=== PATIENT | male | born 1960 | race African-American/Black ===

== ENCOUNTER 2024-12-02 22:29 | Inpatient (IN) | payer OTHER ==
[~2024-12-02] VITALS: Ht 177.8 cm; Wt 193.2 kg
[2024-12-03 00:43] LABS: BASOPHILS % 0.5 % (0.0-2.0); EOSINOPHILS % 0.9 % (0.0-5.0); HEMOGLOBIN. 13.7 g/dL (14.0-18.0); LYMPHOCYTES % 7.7 % (20.0-50.0); MEAN CORPUSCULAR HEMOGLOBIN 28.4 pg (28.0-32.0); MEAN CORPUSCULAR HGB CONC 31.1 g/dL (31.0-37.0); MEAN CORPUSCULAR VOLUME 91.1 fL (80.0-94.0); MEAN PLATELET VOLUME 10.2 fl (7.4-10.4); MONOCYTES % 3.7 % (2.0-8.0); NEUTROPHILS % 87.2 % (40.0-76.0); PLATELET 194 x1000/uL (130-400); RED BLOOD CELL COUNT 4.83 mill/uL (4.7-6.1); RED CELL DISTRIBUTION WIDTH 18.1 % (11.6-14.6); WHITE BLOOD COUNT 13.8 x1000/uL (4.5-11.0)
[2024-12-03 02:22] LABS: CHLORIDE 111 mEq/L (98-107); POTASSIUM 4.8 mEq/L (3.5-5.1); SODIUM 142 mEq/L (136-145)
[2024-12-03 02:23] LABS: CALCIUM 8.2 mg/dL (8.7-10.4); CARBON DIOXIDE 23 mEq/L (21-32)
[2024-12-03 02:28] LABS: CREATININE 3.3 mg/dL (0.6-1.3); GLUCOSE 197 mg/dL (70-105); UREA NITROGEN BLOOD 44 mg/dL (9-23)
[2024-12-03 02:29] LABS: TROPONIN I HIGH SENSITIVITY 12 ng/L (3.0-53)
[2024-12-03 02:41] LABS: INR 1.1; PARTIAL THROMBOPLASTIN TIME 31.6 sec (23.4-31.0); PROTHROMBIN TIME 11.9 sec (9.6-11.0)
[2024-12-03 02:53] LABS: ETHANOL BLOOD < 10 mg/dL (<10)
[2024-12-03] MEDS: SODIUM CHLORIDE 0.9% 500 ML IV ONE (03:00)
[2024-12-03] MEDS ORDERED: ONDANSETRON HCL 4MG/2ML INJ IV PRN (04:45)
[2024-12-03] MEDS ORDERED: ACETAMINOPHEN 325MG TABLET PO PRN (04:45)
[2024-12-03] MEDS ORDERED: IPRATROPIUM/ALBUTEROL 0.5-3(2.5)MG/3ML NEB HHN PRN (04:45)
[2024-12-03] MEDS: CEFTRIAXONE 1GM/50ML 50 ML IV SCH (06:40)
[2024-12-03] MEDS: PANTOPRAZOLE SODIUM 40 MG/VIAL IV SCH (09:48)
[2024-12-03] MEDS ORDERED: DEXTROSE 50% WATER 50ML SYRINGE IV PRN (11:30)
[2024-12-03 12:00] VITALS: BP 133/47; PULSE 70; RESP 18; TEMP 36.3918; O2SAT 98
[2024-12-03] MEDS: BLOOD SUGAR DIAGNOSTIC STRIP TEST SCH (12:10)
[2024-12-03] MEDS: INSULIN LISPRO 100 UNITS/ML SUBCUT SCH (12:40)
[2024-12-03] MEDS: AZITHROMYCIN 500 MG TABLET PO SCH (13:41)
[2024-12-03 15:21] VITALS: BP 133/47; PULSE 69; RESP 18; TEMP 36.418
[2024-12-03 16:00] VITALS: BP 130/61; RESP 19; TEMP 33.22488; O2SAT 85; O2SAT 96
[2024-12-03] MEDS ORDERED: SIMV10TA97 PO (16:35)
[2024-12-03] MEDS ORDERED: NIFE-49 MT (16:35)
[2024-12-03] MEDS ORDERED: ASPI-1497 PO (16:35)
[2024-12-03] MEDS ORDERED: FURO80TA3 PO (16:35)
[2024-12-03 20:00] VITALS: BP 169/61; PULSE 58; RESP 16; TEMP 36.28068; O2SAT 96
[2024-12-04] VITALS: BP 146/67; PULSE 77; RESP 16; TEMP 36.22512; O2SAT 92
[2024-12-04 04:00] VITALS: BP 158/71; PULSE 73; RESP 16; TEMP 36.33624; O2SAT 93
[2024-12-04 07:55] LABS: POTASSIUM 5.3 mEq/L (3.5-5.1)
[2024-12-04 07:56] LABS: CALCIUM 8.4 mg/dL (8.7-10.4)
[2024-12-04 07:59] LABS: HEMOGLOBIN 13.3 g/dL (14.0-18.0); MEAN CORPUSCULAR HEMOGLOBIN 28.6 pg (28.0-32.0); MEAN CORPUSCULAR HGB CONC 30.9 g/dL (31.0-37.0); MEAN CORPUSCULAR VOLUME 92.3 fL (80.0-94.0); PLATELET 174 x1000/uL (130-400); RED BLOOD CELL COUNT 4.65 mill/uL (4.7-6.1); RED CELL DISTRIBUTION WIDTH 17.8 % (11.6-14.6); WHITE BLOOD COUNT 8.4 x1000/uL (4.5-11.0)
[2024-12-04 08:00] VITALS: BP 149/73; PULSE 78; RESP 18; TEMP 36.55848; O2SAT 95
[2024-12-04 08:13] LABS: T4 FREE 1.18 ng/dL (0.89-1.76)
[2024-12-04 08:26] LABS: CREATININE 3.1 mg/dL (0.6-1.3)
[2024-12-04] MEDS: AZITHROMYCIN 250 MG TABLET PO SCH (08:45)
[2024-12-04] MEDS ORDERED: SODIUM POLYSTYRENE SULFONATE 15 G/60 ML BOT PO ONE (08:45)
[2024-12-04] MEDS: SODIUM ZIRCONIUM CYCLOSILICATE 10GM/PACKET PO NR (10:11)
[2024-12-04 10:42] LABS: THYROID STIMULATING HORMONE 4.33 uIU/mL (0.55-4.78)
[2024-12-04 12:00] VITALS: BP 146/72; PULSE 73; RESP 18; TEMP 36.50292; O2SAT 94
[2024-12-04] MEDS ORDERED: HYDRALAZINE 20MG/ML VIAL IV PRN (15:45)
[2024-12-04 16:00] VITALS: BP 156/82; PULSE 82; RESP 18; TEMP 36.61404; O2SAT 94
[2024-12-04] MEDS: ENOXAPARIN 40MG/0.4ML SYR SUBCUT SCH (16:55)
[2024-12-04] MEDS ORDERED: MEDICATION NOT ON FORMULARY EA (Simvastatin 10 MG) PO SCH (18:00)
[2024-12-04 20:00] VITALS: BP 154/73; PULSE 77; RESP 18; TEMP 35.94732; O2SAT 93
[2024-12-04] MEDS: ATORVASTATIN CALCIUM 10MG TABLET PO SCH (21:34)
[2024-12-05] VITALS (9 sets, daily range): BP systolic 148–180; BP diastolic 74–94; PULSE 72–102; RESP 16–20; TEMP 36.00288–36.72516; O2SAT 93–97
[2024-12-05] MEDS: CEFTRIAXONE 1GM/50ML 50 ML IV SCH (06:24)
[2024-12-05 07:12] LABS: HEMATOCRIT 42.7 % (42.0-52.0); HEMOGLOBIN 13.1 g/dL (14.0-18.0); MEAN CORPUSCULAR HEMOGLOBIN 28.2 pg (28.0-32.0); MEAN CORPUSCULAR HGB CONC 30.6 g/dL (31.0-37.0); MEAN CORPUSCULAR VOLUME 92.1 fL (80.0-94.0); PLATELET 179 x1000/uL (130-400); RED BLOOD CELL COUNT 4.64 mill/uL (4.7-6.1); RED CELL DISTRIBUTION WIDTH 18.8 % (11.6-14.6); WHITE BLOOD COUNT 6.8 x1000/uL (4.5-11.0)
[2024-12-05 07:40] LABS: CALCIUM 8.6 mg/dL (8.7-10.4); POTASSIUM 5.2 mEq/L (3.5-5.1)
[2024-12-05 07:46] LABS: CREATININE 2.8 mg/dL (0.6-1.3)
[2024-12-05] MEDS: NIFEDIPINE XL 60MG TAB PO SCH (08:39)
[2024-12-05] MEDS: ASPIRIN 81MG EC TABLET PO SCH (08:39)
[2024-12-05] MEDS: FUROSEMIDE 40MG/4ML VIAL IVP SCH (08:39)
[2024-12-05] MEDS ORDERED: AZIT250T12 PO ×2 (12:41→13:22)
[2024-12-05] MEDS ORDERED: AMOX1TAB16 MT ×2 (12:41→13:22)
[2024-12-05] MEDS: SODIUM POLYSTYRENE SULFONATE 15 G/60 ML BOT PO NR (13:37)
[2024-12-06] MEDS ORDERED: FAMOTIDINE 20MG/2ML VIAL IV SCH (09:00)
== END 2024-12-05 21:00 | disposition home or self-care (01) | DRG 637 ==
LOC: ER 22:29 → 8WST 12-03 03:34 → EDBEDREQTM 12-03 05:52 → EDBEDREQ 12-03 05:52 → EDBEDREQDT 12-03 05:52
PROVIDERS: ADMIT Internal Medicine; ATTEND Internal Medicine
DX: E11.649 Type 2 diabetes mellitus with hypoglycemia without coma (principal); J18.9 Pneumonia, unspecified organism; I13.0 Hypertensive heart and chronic kidney disease with heart failure and stage 1 through stage 4 chronic kidney disease, or unspecified chronic kidney disease; Z68.44 Body mass index [BMI] 60.0-69.9, adult; N39.0 Urinary tract infection, site not specified; N17.9 Acute kidney failure, unspecified; N18.4 Chronic kidney disease, stage 4 (severe); E11.22 Type 2 diabetes mellitus with diabetic chronic kidney disease; I95.9 Hypotension, unspecified; I50.9 Heart failure, unspecified; D72.829 Elevated white blood cell count, unspecified; E11.51 Type 2 diabetes mellitus with diabetic peripheral angiopathy without gangrene; E11.40 Type 2 diabetes mellitus with diabetic neuropathy, unspecified; E87.5 Hyperkalemia; Z99.3 Dependence on wheelchair; Z89.511 Acquired absence of right leg below knee; Z79.4 Long term (current) use of insulin; Z79.82 Long term (current) use of aspirin; Z79.899 Other long term (current) drug therapy; E66.01 Morbid (severe) obesity due to excess calories
CPT/HCPCS: 36415; 71045; 80048; 80061; 80320; 82962; 83036; 83880; 84145; 84439; 84443; 84484; 85025; 85027; 93005; 93970; 99285; J0696; J1650; J1815; J1940; J2470; G0480

== ENCOUNTER 2025-05-10 22:38 | Emergency (ER) | payer MEDICARE, OTHER ==
[~2025-05-10] VITALS: Ht 172.7 cm; Wt 175.0 kg
[~2025-05-10 22:38] MED LIST: AMOX1TAB16 MT; ASPI-1497 PO; AZIT250T12 PO; FURO80TA3 PO; NIFE-49 MT; SIMV10TA97 PO
[2025-05-10 22:42] VITALS: O2SAT 100
[2025-05-10 23:54] LABS: BASOPHILS % 0.3 % (0.0-2.0); EOSINOPHILS % 0.1 % (0.0-5.0); HEMATOCRIT. 44.8 % (42.0-52.0); HEMOGLOBIN. 14.1 g/dL (14.0-18.0); LYMPHOCYTES % 7.4 % (20.0-50.0); MEAN CORPUSCULAR HEMOGLOBIN 29.6 pg (28.0-32.0); MEAN CORPUSCULAR HGB CONC 31.5 g/dL (31.0-37.0); MEAN CORPUSCULAR VOLUME 93.9 fL (80.0-94.0); MEAN PLATELET VOLUME 9.4 fl (7.4-10.4); MONOCYTES % 5.4 % (2.0-8.0); NEUTROPHILS % 86.8 % (40.0-76.0); PLATELET 282 x1000/uL (130-400); RED BLOOD CELL COUNT 4.77 mill/uL (4.7-6.1); RED CELL DISTRIBUTION WIDTH 15.5 % (11.6-14.6); WHITE BLOOD COUNT 13.5 x1000/uL (4.5-11.0)
[2025-05-11 00:05] LABS: POTASSIUM 3.8 mEq/L (3.5-5.1)
[2025-05-11 00:07] LABS: CALCIUM 9.2 mg/dL (8.7-10.4)
[2025-05-11 00:11] LABS: CREATININE 3.9 mg/dL (0.6-1.3)
[2025-05-11] MEDS: SODIUM CHLORIDE 0.9% 500 ML IV ONE (02:15)
[2025-05-11 06:10] VITALS: BP 128/71; PULSE 94; RESP 14; TEMP 36.8; O2SAT 100
== END 2025-05-11 06:29 | disposition short-term general hospital (02) ==
LOC: ER 22:38
DX: E11.649 Type 2 diabetes mellitus with hypoglycemia without coma (principal); I11.0 Hypertensive heart disease with heart failure; I48.91 Unspecified atrial fibrillation; I50.9 Heart failure, unspecified; N17.9 Acute kidney failure, unspecified; Z79.4 Long term (current) use of insulin
CPT/HCPCS: 36415; 80048; 82962; 85025; 99285

== ENCOUNTER 2025-10-23 18:50 | Emergency (ER) | payer OTHER ==
[~2025-10-23] VITALS: Ht 177.8 cm; Wt 170.0 kg
[2025-10-23 19:07] VITALS: O2SAT 98
[2025-10-23 20:18] LABS: BASOPHILS % 0.5 % (0.0-2.0); EOSINOPHILS % 1.7 % (0.0-5.0); HEMATOCRIT. 40.2 % (42.0-52.0); HEMOGLOBIN. 12.7 g/dL (14.0-18.0); LYMPHOCYTES % 17.0 % (20.0-50.0); MEAN PLATELET VOLUME 10.3 fl (7.4-10.4); MONOCYTES % 7.6 % (2.0-8.0); NEUTROPHILS % 73.2 % (40.0-76.0); PLATELET 196 x1000/uL (130-400); RED BLOOD CELL COUNT 4.27 mill/uL (4.7-6.1); RED CELL DISTRIBUTION WIDTH 15.8 % (11.6-14.6)
[2025-10-23 20:28] LABS: CREATININE 4.0 mg/dL (0.6-1.3); PROTEIN TOTAL 6.7 g/dL (6.0-8.3); UREA NITROGEN BLOOD 69 mg/dL (9-23)
[2025-10-23 20:30] LABS: ASPARTATE AMINOTRANSFERASE 11 IU/L (<34); BILIRUBIN DIRECT < 0.1 mg/dL (<=3.0); BILIRUBIN TOTAL 0.2 mg/dL (0.1-1.0); TROPONIN I HIGH SENSITIVITY 20 ng/L (3.0-53)
[2025-10-23] MEDS: SODIUM CHLORIDE 0.9% 1,000 ML IV ONE (20:30)
[2025-10-24 00:11] LABS: CLARITY URINE CLEAR (CLEAR); COLOR URINE YELLOW (YELLOW); GLUCOSE URINE NEGATIVE (NEGATIVE); KETONES URINE NEGATIVE (NEGATIVE); LEUKOCYTE ESTERASE URINE NEGATIVE (NEGATIVE); NITRITE URINE NEGATIVE (NEGATIVE); OCCULT BLOOD URINE NEGATIVE (NEGATIVE); PH URINE 5.5 (4.5-8.0); PROTEIN URINE TRACE (NEGATIVE); SPECIFIC GRAVITY URINE 1.013 (1.005-1.030); UROBILINOGEN URINE 0.2 E.U./dL (0.2-1.0)
[2025-10-24 00:30] LABS: BACTERIA URINE NONE SEEN; RBC URINE 0-2 /hpf (0-2); SQUAMOUS EPITHELIAL CELL URINE NONE SEEN /lpf (RARE/1+); WBC URINE 0-2 /hpf (0-2)
[2025-10-24 03:15] VITALS: BP 149/72; PULSE 62; RESP 18; TEMP 36.9; O2SAT 100
== END 2025-10-24 03:18 | disposition home or self-care (01) ==
LOC: ER 18:50 → CMPBEDREQ 10-24 21:08
DX: R53.1 Weakness (principal); E11.649 Type 2 diabetes mellitus with hypoglycemia without coma; E11.22 Type 2 diabetes mellitus with diabetic chronic kidney disease; N18.9 Chronic kidney disease, unspecified; Z79.899 Other long term (current) drug therapy; Z89.511 Acquired absence of right leg below knee
CPT/HCPCS: 99285; 96360; 71045; 80076; 80048; 81003; 82962 ×2; 83880; 83690; 85025; 84484; 36415; 93005; J7030